=== PATIENT | male | born 1965 | race Caucasian/White ===

== ENCOUNTER 2023-12-17 12:16 | Emergency (ER) | payer MEDICAID ==
[~2023-12-17] VITALS: Ht 167.6 cm; Wt 75.0 kg
[2023-12-17 12:47] VITALS: O2SAT 99
[2023-12-17] MEDS: ACETAMINOPHEN 325MG TABLET PO ONE (16:08)
[2023-12-17] MEDS ORDERED: DOXY100T2 MT (16:38)
[2023-12-17 17:24] VITALS: BP 105/68; PULSE 85; RESP 17; TEMP 36.66960; O2SAT 100
== END 2023-12-17 17:37 | disposition home or self-care (01) ==
LOC: ER 12:21
DX: L03.115 Cellulitis of right lower limb (principal)
CPT/HCPCS: 73630; 73660; 99284